=== PATIENT | female | born 1985 | race American Indian/Alaskan Native ===

== ENCOUNTER 2017-10-28 00:13 | Emergency (ER) | payer SELFPAY ==
[2017-10-28] MEDS ORDERED: MOTRIN PO ONE (05:22)
--- NOTE | 2017-10-28 05:22 | Emergency Department Report ---
ED Anxiety HPI - General Chief Complaint: Anxiety Stated Complaint: RIGHT LEG PAIN,HEADACHE Time Seen by Provider: 10/28/17 04:47 Source: patient Mode of arrival: Ambulatory - Related Data Home Medications: Previous Rx's Medication Instructions Recorded Last Taken Type Cephalexin [Keflex] 500 mg PO QID #40 capsule 10/22/14 Unknown Rx Sulfamethoxazole/Trimethoprim 1 each PO BID #20 tablet 10/22/14 Unknown Rx [Bactrim Ds] traMADol [Ultram 50 MG tab] 50 mg PO Q6HR PRN #14 tablet 10/22/14 Unknown Rx Amoxicillin [Amoxicillin TAB] 875 mg PO BID #20 tablet 02/28/16 Unknown Rx Fluticasone [Flonase] 1 spray NS QDAY #1 bottle 02/28/16 Unknown Rx predniSONE [Deltasone] 50 mg PO QDAY #5 tab 02/28/16 Unknown Rx Ibuprofen [Motrin 600 MG tab] 600 mg PO Q8H PRN 5 Days #15 tablet 10/28/17 Unknown Rx hydrOXYzine PAMOATE [Vistaril] 50 mg PO Q8HR PRN 4 Days #12 10/28/17 Unknown Rx capsule Allergies/Adverse Reactions: Allergies Allergy/AdvReac Type Severity Reaction Status Date / Time No Known Allergies Allergy Verified 02/28/16 01:22 ED Review of Systems ROS: Stated complaint: RIGHT LEG PAIN,HEADACHE Other details as noted in HPI ED Past Medical Hx - Past Medical History Previous Medical History?: No - Surgical History Past Surgical History?: Yes Additional Surgical History: C section x1. tubal ligation - Social History Smoking Status: Never Smoker Substance Use Type: None - Medications Home Medications: Home Medications Medication Instructions Recorded Confirmed Last Taken Type Cephalexin [Keflex] 500 mg PO QID #40 capsule 10/22/14 Unknown Rx Sulfamethoxazole/Trimethoprim 1 each PO BID #20 tablet 10/22/14 Unknown Rx [Bactrim Ds] traMADol [Ultram 50 MG tab] 50 mg PO Q6HR PRN #14 tablet 10/22/14 Unknown Rx Amoxicillin [Amoxicillin TAB] 875 mg PO BID #20 tablet 02/28/16 Unknown Rx Fluticasone [Flonase] 1 spray NS QDAY #1 bottle 02/28/16 Unknown Rx predniSONE [Deltasone] 50 mg PO QDAY #5 tab 02/28/16 Unknown Rx Ibuprofen [Motrin 600 MG tab] 600 mg PO Q8H PRN 5 Days #15 tablet 10/28/17 Unknown Rx hydrOXYzine PAMOATE [Vistaril] 50 mg PO Q8HR PRN 4 Days #12 10/28/17 Unknown Rx capsule ED Physical Exam - General Limitations: No Limitations ED Course Vital Signs 10/28/17 10/28/17 10/28/17 00:59 01:10 06:22 Temperature 98.5 F 98.3 F Pulse Rate 83 84 Respiratory 18 16 16 Rate Blood Pressure 126/86 126/86 O2 Sat by Pulse 100 100 Oximetry - Reevaluation(s) Reevaluation #1: 10/28/17 06:27 Patient given Motrin 800 mg emergency room for headache which relieved her headache. She is stable at present. Critical care attestation.: If time is entered above; I have spent that time in minutes in the direct care of this critically ill patient, excluding procedure time. ED Disposition Clinical Impression: Anticipatory anxiety Headache Qualifiers: Headache type: unspecified Headache chronicity pattern: acute headache Intractability: not intractable Qualified Code(s): R51 - Headache Disposition: DC-01 TO HOME OR SELFCARE Is pt being admited?: No Does the pt Need Aspirin: No Condition: Stable Instructions: Anxiety (ED), Acute Headache (ED) Additional Instructions: Please take Vistaril as instructed and please do not drive or operate heavy machinery while taking this medication. This medication will help to calm the anxiety. Take Motrin for headache as needed. Increasing her fluid intake Prescriptions: hydrOXYzine PAMOATE [Vistaril] 50 mg PO Q8HR PRN 4 Days #12 capsule PRN Reason: Anxiety Ibuprofen [Motrin 600 MG tab] 600 mg PO Q8H PRN 5 Days #15 tablet PRN Reason: Pain Referrals: follow up with, primary care physician [Other] - 2-3 Days [facility] [Outside] - 2-3 Days (To manage chronic anxiety.) [facility] [Outside] - 2-3 Days Forms: Accompanied Note, Work/School Release Form(ED)
[2017-10-28] MEDS ORDERED: MOTRIN ONE (06:21)
[2017-10-28 06:42] VITALS: BP 124/83
== END 2017-10-28 06:42 | disposition home or self-care (01) ==
LOC: ED 00:13
DX: F41.9 Anxiety disorder, unspecified (principal); Z98.51 Tubal ligation status
CPT/HCPCS: 99282

== ENCOUNTER 2017-11-01 23:03 | Emergency (ER) | payer SELFPAY ==
[2017-11-02 00:04] VITALS: BP 125/80
[2017-11-02 01:01] LABS: Basophils # (Auto) 0.1 K/mm3 (0.0-0.1); Basophils % (Auto) 0.7 % (0.0-1.8); Eosinophils # (Auto) 0.1 K/mm3 (0.0-0.4); Eosinophils % (Auto) 1.3 % (0.0-4.3); Hematocrit 36.3 % (30.3-42.9); Hemoglobin 11.6 gm/dl (10.1-14.3); Lymphocytes # (Auto) 2.6 K/mm3 (1.2-5.4); Mean Corpuscular HGB Conc 32 % (30-34); Mean Corpuscular Volume 75 fl (79-97); Monocytes # (Auto) 0.6 K/mm3 (0.0-0.8); Monocytes % (Auto) 6.5 % (0.0-7.3); Platelet Count 289 K/mm3 (140-440); Red Blood Count 4.82 M/mm3 (3.65-5.03); Red Cell Distribution Width 15.9 % (13.2-15.2)
[2017-11-02 01:11] LABS: Alanine Aminotransferase 18 units/L (7-56); Albumin 4.1 g/dL (3.9-5); BUN/Creatinine Ratio 16; Blood Urea Nitrogen 13 mg/dL (7-17); Calcium 9.2 mg/dL (8.4-10.2); Hemolysis Index 12; Mean Corpuscular Hemoglobin 24 pg (28-32)
== END 2017-11-02 04:00 | disposition left against medical advice (07) ==
LOC: ED 23:03
DX: I10 Essential (primary) hypertension (principal); Z53.21 Procedure and treatment not carried out due to patient leaving prior to being seen by health care provider
CPT/HCPCS: 36415; 80053; 85025

== ENCOUNTER 2019-05-31 15:51 | Emergency (ER) | payer SELFPAY ==
[2019-05-31 16:10] VITALS: BP 128/94
--- NOTE | 2019-05-31 16:16 | Emergency Department Report ---
ED ENT HPI - General Chief complaint: Sore Throat Stated complaint: SORE THROAT/FEVER/PAIN IN BOTH EARS Time Seen by Provider: 05/31/19 16:08 Source: patient Mode of arrival: Ambulatory Limitations: No Limitations - History of Present Illness Initial comments: 34 y/o female comes in for throat irritation after eating flaming hot cheetosis. Patient has no fever. MD complaint: sore throat Onset/Timin -: days(s) Location: throat Severity scale (0 -10): 5 Quality: aching Consistency: intermittent Worsens with: none Associated Symptoms: sore throat - Related Data Previous Rx's Medication Instructions Recorded Last Taken Type Sulfamethoxazole/Trimethoprim 1 each PO BID #20 tablet 10/22/14 Unknown Rx [Bactrim Ds] cephALEXin [Keflex] 500 mg PO QID #40 capsule 10/22/14 Unknown Rx traMADol [Ultram 50 MG tab] 50 mg PO Q6HR PRN #14 tablet 10/22/14 Unknown Rx Amoxicillin [Amoxicillin TAB] 875 mg PO BID #20 tablet 02/28/16 Unknown Rx Fluticasone [Flonase] 1 spray NS QDAY #1 bottle 02/28/16 Unknown Rx predniSONE [Deltasone] 50 mg PO QDAY #5 tab 02/28/16 Unknown Rx Ibuprofen [Motrin 600 MG tab] 600 mg PO Q8H PRN 5 Days #15 tablet 10/28/17 Unknown Rx hydrOXYzine PAMOATE [Vistaril] 50 mg PO Q8HR PRN 4 Days #12 10/28/17 Unknown Rx capsule Allergies Allergy/AdvReac Type Severity Reaction Status Date / Time No Known Allergies Allergy Verified 05/31/19 15:54 ED Dental HPI - General Chief complaint: Sore Throat Stated complaint: SORE THROAT/FEVER/PAIN IN BOTH EARS Time Seen by Provider: 05/31/19 16:08 Source: patient Mode of arrival: Ambulatory Limitations: No Limitations - Related Data Previous Rx's Medication Instructions Recorded Last Taken Type Sulfamethoxazole/Trimethoprim 1 each PO BID #20 tablet 10/22/14 Unknown Rx [Bactrim Ds] cephALEXin [Keflex] 500 mg PO QID #40 capsule 10/22/14 Unknown Rx traMADol [Ultram 50 MG tab] 50 mg PO Q6HR PRN #14 tablet 10/22/14 Unknown Rx Amoxicillin [Amoxicillin TAB] 875 mg PO BID #20 tablet 02/28/16 Unknown Rx Fluticasone [Flonase] 1 spray NS QDAY #1 bottle 02/28/16 Unknown Rx predniSONE [Deltasone] 50 mg PO QDAY #5 tab 02/28/16 Unknown Rx Ibuprofen [Motrin 600 MG tab] 600 mg PO Q8H PRN 5 Days #15 tablet 10/28/17 Unknown Rx hydrOXYzine PAMOATE [Vistaril] 50 mg PO Q8HR PRN 4 Days #12 10/28/17 Unknown Rx capsule Allergies Allergy/AdvReac Type Severity Reaction Status Date / Time No Known Allergies Allergy Verified 05/31/19 15:54 ED Review of Systems ROS: Stated complaint: SORE THROAT/FEVER/PAIN IN BOTH EARS Other details as noted in HPI Comment: All other systems reviewed and negative ENT: throat pain ED Past Medical Hx - Past Medical History Previous Medical History?: No - Surgical History Additional Surgical History: C section x1. tubal ligation - Social History Smoking Status: Current Every Day Smoker Substance Use Type: None - Medications Home Medications: Home Medications Medication Instructions Recorded Confirmed Last Taken Type Sulfamethoxazole/Trimethoprim 1 each PO BID #20 tablet 10/22/14 Unknown Rx [Bactrim Ds] cephALEXin [Keflex] 500 mg PO QID #40 capsule 10/22/14 Unknown Rx traMADol [Ultram 50 MG tab] 50 mg PO Q6HR PRN #14 tablet 10/22/14 Unknown Rx Amoxicillin [Amoxicillin TAB] 875 mg PO BID #20 tablet 02/28/16 Unknown Rx Fluticasone [Flonase] 1 spray NS QDAY #1 bottle 02/28/16 Unknown Rx predniSONE [Deltasone] 50 mg PO QDAY #5 tab 02/28/16 Unknown Rx Ibuprofen [Motrin 600 MG tab] 600 mg PO Q8H PRN 5 Days #15 tablet 10/28/17 Unknown Rx hydrOXYzine PAMOATE [Vistaril] 50 mg PO Q8HR PRN 4 Days #12 10/28/17 Unknown Rx capsule ED Physical Exam - General Limitations: No Limitations General appearance: alert, in no apparent distress - Head Head exam: Present: atraumatic, normocephalic - Eye Eye exam: Present: normal appearance - ENT ENT exam: Present: mucous membranes moist - Expanded ENT Exam Expanded Throat exam: Negative: tonsillar erythema, tonsillomegaly, tonsillar exudate - Neck Neck exam: Present: normal inspection, full ROM - Cardiovascular Cardiovascular Exam: Present: regular rate, normal rhythm. Absent: systolic murmur, diastolic murmur, rubs, gallop - Neurological Exam Neurological exam: Present: alert, oriented X3 - Psychiatric Psychiatric exam: Present: normal affect, normal mood - Skin Skin exam: Present: warm, dry, intact, normal color. Absent: rash ED Course Vital Signs 05/31/19 16:08 Temperature 99 F Pulse Rate 91 H Respiratory 18 Rate Blood Pressure 128/94 O2 Sat by Pulse 100 Oximetry ED Medical Decision Making - Medical Decision Making 34 y/o female comes in for throat irritation after eating flaming hot cheetosis. Patient has no fever. Discuss with patient can take OTC pain medication and do warm salt gargles. Follow up with her PCP if she has any further concerns. Critical care attestation.: If time is entered above; I have spent that time in minutes in the direct care of this critically ill patient, excluding procedure time. ED Disposition Clinical Impression: Throat irritation Disposition: DC-01 TO HOME OR SELFCARE Is pt being admited?: No Does the pt Need Aspirin: No Condition: Stable Instructions: Tonsillitis (ED) Additional Instructions: Take Tylenol and or Ibuprofen and do warm salt gargles. Follow up with your Provider is symptoms continue. Referrals: Your,Provider [Other] - 3-5 Days
== END 2019-05-31 17:24 | disposition home or self-care (01) ==
LOC: ED 15:51
DX: J02.9 Acute pharyngitis, unspecified (principal); F17.200 Nicotine dependence, unspecified, uncomplicated; Z98.51 Tubal ligation status; Z79.899 Other long term (current) drug therapy
CPT/HCPCS: 99282

== ENCOUNTER 2021-01-11 04:35 | Emergency (ER) | payer SELFPAY ==
[2021-01-11 04:39] VITALS: BP 126/84
[2021-01-11] MEDS ORDERED: LIDOCAINE 2% UROJECT 10 ML JELLY UR ONE (05:05)
--- NOTE | 2021-01-11 05:10 | Emergency Department Report ---
ED General Adult HPI - General Chief complaint: Abdominal Pain Stated complaint: ANAL PAIN Source: patient Mode of arrival: Ambulatory Limitations: No Limitations - History of Present Illness Initial comments: Patient is a 35-year-old -[place] female with past medical history chronic painful external hemorrhoids presents to the ED with complaint of acute exacerbation of her pain for chronic external hemorrhoid with bleeding for the last 4 days. Patient states that the pain has worsened in the last 2 days especially with bowel movement such that she is not able to sit down or lay down because of worsening rectal pain. Patient states that she is also currently on her menstrual cycle and that makes her pain more severe given that she has to also deal with dysmenorrhea. Patient states that she took tramadol and ibuprofen and that these medications helped control her dysmenorrhea but not her rectal pain. Patient denies dizziness, syncope, chest pain, nausea and vomiting, fever, chills, abdominal pain, diarrhea or dysuria, urinary frequency and urgency and vaginal discharge. MD Complaint: Rectal pain, painful external hemorrhoids with bleeding -: Sudden, days(s) (2) Location: buttocks Radiation: non-radiation Severity scale (0 -10): 8 Quality: burning, aching, sharp Consistency: constant Improves with: none Worsens with: none Associated Symptoms: denies other symptoms. denies: confusion, chest pain, cough, diaphoresis, fever/chills, headaches, nausea/vomiting, rash, seizure, shortness of breath, syncope, weakness Treatments Prior to Arrival: NSAID - Related Data Previous Rx's Medication Instructions Recorded Last Taken Type Sulfamethoxazole/Trimethoprim 1 each PO BID #20 tablet 10/22/14 Unknown Rx [Bactrim Ds] cephALEXin [Keflex] 500 mg PO QID #40 capsule 10/22/14 Unknown Rx traMADoL [Ultram 50 MG tab] 50 mg PO Q6HR PRN #14 tablet 10/22/14 Unknown Rx Amoxicillin [Amoxicillin TAB] 875 mg PO BID #20 tablet 02/28/16 Unknown Rx Fluticasone [Flonase] 1 spray NS QDAY #1 bottle 02/28/16 Unknown Rx hydrOXYzine PAMOATE [Vistaril] 50 mg PO Q8HR PRN 4 Days #12 10/28/17 Unknown Rx capsule Gabapentin 300 mg PO Q12H PRN #60 capsule 05/19/20 Unknown Rx Ibuprofen [Motrin 600 MG tab] 600 mg PO Q8H PRN #30 tablet 05/19/20 Unknown Rx predniSONE [Deltasone] 50 mg PO QDAY #7 tab 05/19/20 Unknown Rx Dibucaine 1% [Nupercainal] 1 applicatio [place] TID #1 tube 01/11/21 Unknown Rx Hydrocortisone [Anusol-Hc 2.5% TOP 1 applic RC TID #1 tube 01/11/21 Unknown Rx CREAM] Allergies Allergy/AdvReac Type Severity Reaction Status Date / Time No Known Allergies Allergy Verified 05/19/20 16:09 ED Review of Systems ROS: Stated complaint: ANAL PAIN Other details as noted in HPI Constitutional: denies: chills, fever Eyes: denies: eye pain, eye discharge, vision change ENT: denies: ear pain, throat pain Respiratory: denies: cough, shortness of breath, wheezing Cardiovascular: denies: chest pain, palpitations Endocrine: no symptoms reported Gastrointestinal: other (rectal pain, external hemorrhoids). denies: abdominal pain, nausea, diarrhea Genitourinary: denies: urgency, dysuria, discharge Musculoskeletal: denies: back pain, joint swelling, arthralgia Skin: denies: rash, lesions Neurological: denies: headache, weakness, paresthesias Psychiatric: denies: anxiety, depression Hematological/Lymphatic: denies: easy bleeding, easy bruising ED Past Medical Hx - Past Medical History Previous Medical History?: No - Surgical History Past Surgical History?: Yes Additional Surgical History: C section x1. tubal ligation - Social History Smoking Status: Never Smoker Substance Use Type: None - Medications Home Medications: Home Medications Medication Instructions Recorded Confirmed Last Taken Type Sulfamethoxazole/Trimethoprim 1 each PO BID #20 tablet 10/22/14 Unknown Rx [Bactrim Ds] cephALEXin [Keflex] 500 mg PO QID #40 capsule 10/22/14 Unknown Rx traMADoL [Ultram 50 MG tab] 50 mg PO Q6HR PRN #14 tablet 10/22/14 Unknown Rx Amoxicillin [Amoxicillin TAB] 875 mg PO BID #20 tablet 02/28/16 Unknown Rx Fluticasone [Flonase] 1 spray NS QDAY #1 bottle 02/28/16 Unknown Rx hydrOXYzine PAMOATE [Vistaril] 50 mg PO Q8HR PRN 4 Days #12 10/28/17 Unknown Rx capsule Gabapentin 300 mg PO Q12H PRN #60 capsule 05/19/20 Unknown Rx Ibuprofen [Motrin 600 MG tab] 600 mg PO Q8H PRN #30 tablet 05/19/20 Unknown Rx predniSONE [Deltasone] 50 mg PO QDAY #7 tab 05/19/20 Unknown Rx Dibucaine 1% [Nupercainal] 1 applicatio NJ TID #1 tube 01/11/21 Unknown Rx Hydrocortisone [Anusol-Hc 2.5% TOP 1 applic RC TID #1 tube 01/11/21 Unknown Rx CREAM] ED Physical Exam - General Limitations: No Limitations General appearance: alert, in no apparent distress - Head Head exam: Present: atraumatic, normocephalic, normal inspection - Eye Eye exam: Present: normal appearance, PERRL, EOMI Pupils: Present: normal accommodation - ENT ENT exam: Present: normal exam, normal orophraynx, mucous membranes moist, TM's normal bilaterally, normal external ear exam - Neck Neck exam: Present: normal inspection, full ROM - Respiratory Respiratory exam: Present: normal lung sounds bilaterally. Absent: respiratory distress, wheezes, rhonchi, stridor, chest wall tenderness, accessory muscle use, decreased breath sounds, prolonged expiratory - Cardiovascular Cardiovascular Exam: Present: regular rate, normal rhythm, normal heart sounds. Absent: systolic murmur, diastolic murmur, rubs, gallop - GI/Abdominal GI/Abdominal exam: Present: soft, normal bowel sounds. Absent: tenderness, guarding, rebound, hyperactive bowel sounds, hypoactive bowel sounds, organomegaly - Rectal Rectal exam: Present: deferred, hemorrhoids (bleeding thrombosed severe tender hemorrhoids), tenderness, other (Bleeding tender thrombosed external hemorrhoids) - Extremities Exam Extremities exam: Present: normal inspection, full ROM, normal capillary refill - Back Exam Back exam: Present: normal inspection, full ROM. Absent: tenderness, CVA tenderness (R), CVA tenderness (L), muscle spasm, paraspinal tenderness, vertebral tenderness - Neurological Exam Neurological exam: Present: alert, oriented X3, CN II-XII intact, normal gait, reflexes normal - Psychiatric Psychiatric exam: Present: normal affect, normal mood - Skin Skin exam: Present: warm, dry, intact, normal color. Absent: rash ED Course Vital Signs 01/11/21 04:38 Temperature 97.6 F Pulse Rate 96 H Respiratory 18 Rate Blood Pressure 126/84 O2 Sat by Pulse 96 Oximetry ED Medical Decision Making - Medical Decision Making This is a 35-year-old -[place] female with past medical history chronic painful external hemorrhoids presents to the ED with complaint of acute exacerbation of her pain for chronic external hemorrhoid with bleeding for the last 4 days. Patient states that she has experienced painful external hemorrh oids for the last 3 months with occasional flares. Patient states that the pain has worsened in the last 2 days especially with bowel movement such that she is not able to sit down or lay down because of worsening rectal pain. Patient states that she is also currently on her menstrual cycle and that makes her pain more severe given that she has to also deal with dysmenorrhea. Patient states that she took tramadol and ibuprofen and that these medications helped control her dysmenorrhea but not her rectal pain. In the ED, patient is alert and oriented x3 and is not in distress. Patient was treated in the ED with topical Urojet gel. On reevaluation, patient's pain is well controlled medication. Patient was discharged home on more pain medications including dibucaine 1% solution and Anusol cream. Patient was advised to follow-up with her primary care physician, or GI physician or general surgeon for further evaluation of her chronic external hemorrhoids. Patient was advised to return to the ED immediately if symptoms get worse. - Differential Diagnosis Hemorrhoids; anal fissure; constipation; dysmenorrhea Critical care attestation.: If time is entered above; I have spent that time in minutes in the direct care of this critically ill patient, excluding procedure time. ED Disposition Clinical Impression: External bleeding hemorrhoids, Anal or rectal pain Disposition: - TO HOME OR SELFCARE Is pt being admited?: No Does the pt Need Aspirin: No Condition: Stable Instructions: Abdominal Pain (ED), Hemorrhoids, [id number], Nonsurgical Procedures for Hemorrhoids, Care After Additional Instructions: Apply the medication to the affected area as advised, drink plenty of fluids, increase high-fiber in your diet and follow-up with the general surgeon or GI physician as advised. Return to the ED immediately if symptoms get worse. Prescriptions: Hydrocortisone [Anusol-Hc 2.5% TOP CREAM] 1 applic RC TID #1 tube Dibucaine 1% [Nupercainal] 1 applicatio NJ TID #1 tube Referrals: [facility] [Provider Group] - 3-5 Days BOWEN PACHECO MD [Staff Physician] - 3-5 Days ELSIE GONZALEZ DO [Staff Physician] - 3-5 Days Time of Disposition: 05:12 Print Language: GEORGIAN
== END 2021-01-11 05:35 | disposition home or self-care (01) ==
LOC: ED 04:35
DX: K64.4 Residual hemorrhoidal skin tags (principal); K62.89 Other specified diseases of anus and rectum; Z79.899 Other long term (current) drug therapy; Z98.890 Other specified postprocedural states; Z98.51 Tubal ligation status
CPT/HCPCS: 99282

== ENCOUNTER 2021-07-20 10:58 | Emergency (ER) | payer OTHER ==
--- NOTE | 2021-07-20 11:37 | Emergency Department Report ---
Chief Complaint: Weakness Stated Complaint: HEAD HURTS AND BODY SORE Time Seen by Provider: 07/20/21 11:36 - HPI History of Present Illness: Pt received [employer] covid19 immunization last Sunday. Since then she has had diarrhea- making her miss work. She has normal VS and states she can drink fine. It is only when she eats food she has diarrhea. This was 2nd shot. First did not make her ill. no n/v. no fever or chills. no abd pain. no vag bleeding or discharge. no back pain. No cp or sob ambulatory and non ill appearing pmh none psh none home rx none - ROS Review of Systems: diarrhea - Exam Vital Signs: Vital Signs 07/20/21 11:20 Temperature 98.2 F Pulse Rate 70 Respiratory 16 Rate Blood Pressure 119/81 [Left] O2 Sat by Pulse 97 Oximetry taking po Physical Exam: alert oriented abd snt no cva tenderness taking po s1s2 lungs cta MSE screening note: Focused history and physical exam performed. Due to findings the following was ordered: no life threat requesting work note ED Disposition for MSE Clinical Impression: Fatigue Is pt being admited?: No Does the pt Need Aspirin: No Condition: Stable Additional Instructions: stay hydrated follow up with pcp if needed referral below Referrals: KJ ENGLE MD [Staff Physician] - 3-5 Days Forms: Work/School Release Form(ED) Time of Disposition: 11:37
[2021-07-20 12:28] VITALS: BP 116/78
== END 2021-07-20 12:28 | disposition home or self-care (01) ==
LOC: ED 10:58
DX: R53.83 Other fatigue (principal)
CPT/HCPCS: 99282

== ENCOUNTER 2021-07-27 14:01 | Emergency (ER) | payer OTHER ==
[2021-07-27 14:20] VITALS: BP 109/75
[2021-07-27] MEDS ORDERED: KETOROLAC 30 MG/1 ML INJ IV ONE (15:39)
[2021-07-27] MEDS ORDERED: METOCLOPRAMIDE 10 MG/2 ML INJ IV ONE (15:39)
[2021-07-27] MEDS ORDERED: diphenhydrAMINE 50 MG/ML VIAL IV ONE (15:39)
--- NOTE | 2021-07-27 15:43 | Emergency Department Report ---
ED Headache HPI - General Chief Complaint: Dizziness Stated Complaint: LIGHT HEADED,RT SIDE HEAD PAIN Time Seen by Provider: 07/27/21 15:38 Source: patient Exam Limitations: no limitations - History of Present Illness Initial Comments: The patient was evaluated in the emergency department for symptoms described in the history of present illness. He/she was evaluated in the context of the global COVID-19 pandemic, which necessitated consideration that the patient might be at risk for infection with the virus that causes COVID-19. Institutional protocols and algorithms that pertain to the evaluation of patients at risk for COVID-19 are in a state of rapid change based on information released by regulatory bodies including the CDC and federal and state organizations. These policies and algorithms were followed during the patient's care in the emergency department. Please note that these policies, procedures and recommendations changed on a rapid basis. 36-year-old -Italian female presents to the emergency room complaining of 4-day history of states that she had a Covid vaccination on 07/18/2021. States having sweats states that it feels like the room is spinning Excedrin and Motrin without any help. Patient denies any neurological deficits fever chills. Patient denies any trauma no falls. Any chest pain or shortness of breath. Does report she works for [employer] [place]. Patient is unaware of any Covid exposure. Timing/Duration: other (4 days) Quality: moderate, throbbing Head Injury Location: temporal (rt) Recent Head Trauma: no recent headache/trauma Modifying Factors: worse with: cold therapy, exposure to light, immobilization, movement Associated Symptoms: nasal drainage (After she had Covid vaccination). denies: fever/chills, nausea/vomiting, sinus infection, stiff neck, vision changes, weakness Allergies/Adverse Reactions: Allergies No Known Allergies Allergy (Verified 07/27/21 14:20) Home Medications: Ambulatory Orders Sulfamethoxazole/Trimethoprim [Bactrim Ds] 1 each PO BID #20 tablet 10/22/14 cephALEXin [Keflex] 500 mg PO QID #40 capsule 10/22/14 traMADoL [Ultram 50 MG tab] 50 mg PO Q6HR PRN #14 tablet 10/22/14 Amoxicillin [Amoxicillin TAB] 875 mg PO BID #20 tablet 02/28/16 Fluticasone [Flonase] 1 spray NS QDAY #1 bottle 02/28/16 hydrOXYzine PAMOATE [Vistaril] 50 mg PO Q8HR PRN 4 Days #12 capsule 10/28/17 Gabapentin 300 mg PO Q12H PRN #60 capsule 05/19/20 Ibuprofen [Motrin 600 MG tab] 600 mg PO Q8H PRN #30 tablet 05/19/20 predniSONE [Deltasone] 50 mg PO QDAY #7 tab 05/19/20 Dibucaine 1% [Nupercainal] 1 applicatio AR TID #1 tube 01/11/21 Hydrocortisone [Anusol-Hc 2.5% TOP CREAM] 1 applic RC TID #1 tube 01/11/21 ED Review of Systems ROS: Stated complaint: LIGHT HEADED,RT SIDE HEAD PAIN Other details as noted in HPI Comment: All other systems reviewed and negative ED Past Medical Hx - Surgical History Additional Surgical History: C section x1. tubal ligation - Social History Smoking Status: Never Smoker Substance Use Type: None - Medications Home Medications: Home Medications Medication Instructions Recorded Confirmed Last Taken Type Sulfamethoxazole/Trimethoprim 1 each PO BID #20 tablet 10/22/14 Unknown Rx [Bactrim Ds] cephALEXin [Keflex] 500 mg PO QID #40 capsule 10/22/14 Unknown Rx traMADoL [Ultram 50 MG tab] 50 mg PO Q6HR PRN #14 tablet 10/22/14 Unknown Rx Amoxicillin [Amoxicillin TAB] 875 mg PO BID #20 tablet 02/28/16 Unknown Rx Fluticasone [Flonase] 1 spray NS QDAY #1 bottle 02/28/16 Unknown Rx hydrOXYzine PAMOATE [Vistaril] 50 mg PO Q8HR PRN 4 Days #12 10/28/17 Unknown Rx capsule Gabapentin 300 mg PO Q12H PRN #60 capsule 05/19/20 Unknown Rx Ibuprofen [Motrin 600 MG tab] 600 mg PO Q8H PRN #30 tablet 05/19/20 Unknown Rx predniSONE [Deltasone] 50 mg PO QDAY #7 tab 05/19/20 Unknown Rx Dibucaine 1% [Nupercainal] 1 applicatio AR TID #1 tube 01/11/21 Unknown Rx Hydrocortisone [Anusol-Hc 2.5% TOP 1 applic RC TID #1 tube 01/11/21 Unknown Rx CREAM] ED Physical Exam - General Limitations: No Limitations General appearance: alert, in no apparent distress - Head Head exam: Present: atraumatic, normocephalic - ENT ENT exam: Present: mucous membranes moist, normal external ear exam - Expanded ENT Exam Expanded TM/Canal exam: Cerumen Impaction: Right TM Mouth exam: Present: normal external inspection Throat exam: Positive: tonsillar erythema - Neck Neck exam: Present: normal inspection, full ROM - Respiratory Respiratory exam: Present: normal lung sounds bilaterally. Absent: chest wall tenderness, accessory muscle use - Cardiovascular Cardiovascular Exam: Present: regular rate - GI/Abdominal GI/Abdominal exam: Present: soft, normal bowel sounds - Extremities Exam Extremities exam: Present: normal inspection - Back Exam Back exam: Present: normal inspection - Neurological Exam Neurological exam: Present: alert, oriented X3, CN II-XII intact, normal gait. Absent: motor sensory deficit - Psychiatric Psychiatric exam: Present: normal affect, normal mood - Skin Skin exam: Present: warm, dry, intact, normal color. Absent: rash ED Course Vital Signs 07/27/21 14:19 Temperature 98.6 F Pulse Rate 95 H Respiratory 14 Rate Blood Pressure 109/75 [Left] O2 Sat by Pulse 100 Oximetry - Reevaluation(s) Reevaluation #1: 07/27/21 17:00 Patient reports her headache has improved after having cocktail for headache. ED Medical Decision Making - Medical Decision Making 36-year-old -Italian female presents to the emergency room complaining of 4-day history of states that she had a Covid vaccination on 07/18/2021. States having sweats states that it feels like the room is spinning Excedrin and Motrin without any help. Patient denies any neurological deficits fever chills. Patient denies any trauma no falls. Any chest pain or shortness of breath. Does report she works for [employer] [place]. Patient is unaware of any Covid exposure. INT was Toradol Reglan and Benadryl. Critical care attestation.: If time is entered above; I have spent that time in minutes in the direct care of this critically ill patient, excluding procedure time. ED Disposition Clinical Impression: Headache Qualifiers: Headache type: unspecified Headache chronicity pattern: acute headache Intractability: intractable Qualified Code(s): R51.9 - Headache, unspecified Disposition: 01 HOME / SELF CARE / HOMELESS Is pt being admited?: No Does the pt Need Aspirin: No Condition: Stable Additional Instructions: Please be sure to increase your fluids advance her diet as tolerated Tylenol or ibuprofen for headache. Follow-up with your primary care provider. Rest for the next 24 hours. Referrals: KJ ENGLE MD [Staff Physician] - 3-5 Days Forms: Work/School Release Form(ED) Time of Disposition: 17:00
== END 2021-07-27 17:51 | disposition home or self-care (01) ==
LOC: ED 14:01
DX: R51.9 Headache, unspecified (principal)
CPT/HCPCS: 96374; 96375; 99282; J1200; J1885; J2765